=== PATIENT | female | born 1980 | race Caucasian/White ===

== ENCOUNTER 2016-11-08 11:34 | Emergency (ER) | payer OTHER, MEDICAID ==
--- NOTE | 2016-11-08 13:03 | PD ---
HPI Chief Complaint: knee pain Time Seen by Provider: 12:54 Travel History International Travel<30 days: No Contact w/Intl Traveler<30days: No Traveled to known affect area: No History of Present Illness [place], while [place], tumbled and now left knee pain, 9/10, unable to bear weight, also with localized swelling to left knee. pmhx: interstitial cystitis, chron's, asthma, fibromyalgia PFSH Social History Tobacco Use: Yes Allergies-Medications (Allergen,Severity, Reaction): Coded Allergies: NSAIDS (Non-Steroidal Anti-Inflamma (Verified Allergy, Severe, 11/08/16) latex (Verified Allergy, Severe, Anaphylaxis, 11/08/16) ibuprofen (Verified Allergy, Unknown, 11/08/16) Review of Systems Except as stated in HPI: all other systems reviewed are Neg Musculoskeletal: Positive: Pain Physical Exam Narrative GENERAL: SKIN: Warm and dry. HEAD: Atraumatic. Normocephalic. EYES: Pupils equal and round. No scleral icterus. No injection or drainage. ENT: No nasal bleeding or discharge. Mucous membranes pink and moist. NECK: Trachea midline. No JVD. CARDIOVASCULAR: Regular rate and rhythm. RESPIRATORY: No accessory muscle use. Clear to auscultation. Breath sounds equal bilaterally. GASTROINTESTINAL: Abdomen soft, non-tender, nondistended MUSCULOSKELETAL: Extremities without clubbing, cyanosis, or edema. No obvious deformities. left abrasion over patella...edema to left knee and ttp, limited rom, due to pain, difficult to examine as patient is VERY apprehensive about using it NEUROLOGICAL: Awake and alert. No obvious cranial nerve deficits. Motor grossly within normal limits. Five out of 5 muscle strength in the arms and legs. Normal speech. PSYCHIATRIC: Appropriate mood and affect; insight and judgment normal. Data Data Last Documented VS Vital Signs Date Time Temp Pulse Resp B/P (MAP) Pulse Ox O2 Delivery O2 Flow Rate FiO2 11/08/16 14:25 66 117/59 (78) 98 Room Air Orders Orders Knee, Complete (4vws) (11/08/16 ) Wound Care (11/08/16 13:31) ^ Knee Immobilizer (11/08/16 13:31) Crutches (11/08/16 13:31) Hydromorphone Pf Inj (Dilaudid Pf Inj) (11/08/16 13:45) Ondansetron Odt (Zofran Odt) (11/08/16 13:45) Immobilizer Knee 20 Inch (11/08/16 ) [facility] Medical Decision Making Medical Screen Exam Complete: Yes Emergency Medical Condition: Yes Medical Record Reviewed: Yes Differential Diagnosis fx v dislocation v subluxation v ligamentous tear Narrative Course xray neg for dislocation or fx. patient is questionable about ligamentous tear as well....advised to followup with orthopedist which she declined referral to...states she has her own orthopedist Diagnosis Primary Impression: LEFT KNEE ABRASION Additional Impression: r/o left knee ligament injury Disposition: DISCHARGE HOME Condition: Stable Ronal Anderson MD Nov 08, 2016 13:03
--- NOTE | 2016-11-08 13:16 | RADRPT ---
EXAM DATE/TIME: 11/08/2016 12:51 [facility] COMPARISON: No previous studies available for comparison. INDICATIONS : Left knee pain post fall. MEDICAL HISTORY : None. SURGICAL HISTORY : None. ENCOUNTER: Initial ACUITY: 1 day PAIN SCORE: 10/10 LOCATION: Left knee. FINDINGS: Four view examination of the left knee demonstrates no evidence of fracture or dislocation. Bony min eralization is normal. The articular surfaces are intact. The suprapatellar soft tissues have a nor mal configuration. CONCLUSION: No acute fracture. Luis Terry MD on November 08, 2016 at 13:14 Board Certified Radiologist. This report was verified electronically.
[2016-11-08] MEDS ORDERED: HYDROmorphone HCL PF 1 MG/ML VIAL IM ONE (13:45)
[2016-11-08] MEDS ORDERED: ONDANSETRON ODT 4 MG TAB PO ONE (13:45)
[2016-11-08 14:25] VITALS: BP 117/59; PULSE 66; O2SAT 98
== END 2016-11-08 14:36 | disposition home or self-care (01) ==
LOC: NEPD 11:34
DX: S80.212A Abrasion, left knee, initial encounter (principal); W19.XXXA Unspecified fall, initial encounter; Y93.18 Activity, surfing, windsurfing and boogie boarding
CPT/HCPCS: 73564; E0113; J1170; L1830; 96372